=== PATIENT | female | born 1940 | race Caucasian/White ===

== ENCOUNTER 2023-12-03 20:17 | Observation (INO) | payer OTHER ==
[2023-12-03 21:09] LABS: BASO % 0.7 % (0-2.0); EOS % 1.9 % (0-4.5); HEMATOCRIT 36.2 % (32.4-45.2); HEMOGLOBIN 11.9 GM/dL (10.7-15.3); LYMPH % 14.4 % (8-40); MCH 29.4 pg (25.7-33.7); MEAN CELL VOLUME 89.1 fl (80-96); MEAN PLT VOLUME 8.3 fl (7.5-11.1); MONO % 7.7 % (3.8-10.2); NEUT % 75.3 % (42.8-82.8); PLATELET COUNT 171 10^3/uL (134-434); RBC 4.06 M/mm3 (3.60-5.2); RDW 14.2 % (11.6-15.6); WHITE BLOOD COUNT 7.3 K/mm3 (4.0-10.0)
[2023-12-03 21:21] LABS: ACTIVATED PTT 29.7 SECONDS (25.2-36.5); INR 0.98 (0.83-1.09); PROTHROMBIN TIME (PATIENT) 11.3 SEC (9.7-13.0)
[2023-12-03] MEDS: LACTATED RINGERS SOLUTION 1000 ML INFUS.BAG IV ONE (21:41)
[2023-12-03 21:45] LABS: POTASSIUM 3.6 mmol/L (3.5-5.1)
[2023-12-03 21:47] LABS: CALCIUM 8.9 mg/dL (8.5-10.1)
[2023-12-03 21:48] LABS: ALBUMIN 3.6 g/dl (3.4-5.0); BLOOD UREA NITROGEN 16.3 mg/dL (7-18)
[2023-12-03 21:52] LABS: BILIRUBIN,TOTAL 0.1 mg/dL (0.2-1); TOT PROT 6.6 g/dl (6.4-8.2)
[2023-12-03 21:56] LABS: N-TERMINAL BNP 68.4 pg/ml (5-450)
[2023-12-04] MEDS ORDERED: DOCUSATE SODIUM 100 MG CAPSULE (FP) PO PRN (01:08)
[2023-12-04] MEDS ORDERED: ACETAMINOPHEN 325 MG TABLET (FP) PO PRN (01:08)
[2023-12-04] MEDS ORDERED: QUEtiapine FUMARATE 100 MG TABLET (FP) ONE ×2 (02:10→19:57)
[2023-12-04] MEDS ORDERED: QUEtiapine FUMARATE 25 MG TABLET ONE ×2 (02:11→19:56)
[2023-12-04] MEDS: GABAPENTIN 100 MG CAPSULE PO SCH (02:16)
[2023-12-04 02:52] LABS: EPI CELLS 12 /uL (0-25.1); HYALINE CASTS 0 /uL (0-3.1); PH,URINE 6.5 (5.0-8.0); URINE APPEARANCE CLEAR; URINE BACTERIA 21 /uL (0-1359); URINE BILIRUBIN NEGATIVE (NEGATIVE); URINE COLOR YELLOW; URINE GLUCOSE (UA) NEGATIVE (NEGATIVE); URINE KETONE NEGATIVE (NEGATIVE); URINE LEUK ESTERASE 1+ (NEGATIVE); URINE NITRITE NEGATIVE (NEGATIVE); URINE PROTEIN TRACE (NEGATIVE); URINE RBC 4 /uL (0-23.9); URINE UROBILINOGEN 0.2 mg/dL (0.2-1.0); URINE WBC 62 /uL (0-25.8)
[2023-12-04 06:18] LABS: BASO % 0.4 % (0-2.0); EOS % 2.1 % (0-4.5); HEMATOCRIT 35.5 % (32.4-45.2); HEMOGLOBIN 11.6 GM/dL (10.7-15.3); LYMPH % 24.9 % (8-40); MCHC 32.6 g/dl (32.0-36.0); MEAN PLT VOLUME 8.3 fl (7.5-11.1); NEUT % 63.6 % (42.8-82.8); PLATELET COUNT 169 10^3/uL (134-434); RBC 3.99 M/mm3 (3.60-5.2); RDW 13.7 % (11.6-15.6); WHITE BLOOD COUNT 5.9 K/mm3 (4.0-10.0)
[2023-12-04 06:32] LABS: POTASSIUM 3.8 mmol/L (3.5-5.1)
[2023-12-04 06:34] LABS: CALCIUM 9.3 mg/dL (8.5-10.1)
[2023-12-04 06:35] LABS: BLOOD UREA NITROGEN 15.4 mg/dL (7-18)
[2023-12-04 06:39] LABS: CREATININE 0.7 mg/dL (0.55-1.3)
[2023-12-04] MEDS ORDERED: ESCITALOPRAM OXALATE 10 MG TABLET ONE (07:23)
[2023-12-04] MEDS ORDERED: PANTOPRAZOLE 40 MG TABLET PO ONE (07:23)
[2023-12-04] MEDS: PANTOPRAZOLE 40 MG TABLET PO SCH (07:28)
[2023-12-04] MEDS: ESCITALOPRAM OXALATE 10 MG TABLET PO SCH (07:29)
[2023-12-04 13:29] LABS: N-TERMINAL BNP 60.8 pg/ml (5-450)
[2023-12-04] MEDS ORDERED: CEFTRIAXONE 1 GM/50 ML BAG ONE (18:50)
[2023-12-04] MEDS: CEFTRIAXONE 1 GM in DEXTROSE 5%-WATER - 50 ML IVPB SCH (19:13)
[2023-12-04] MEDS ORDERED: DONEPEZIL HCL 5 MG TABLET (FP) ONE (22:01)
[2023-12-04] MEDS ORDERED: GABAPENTIN 100 MG CAPSULE ONE (22:01)
[2023-12-04] MEDS: DONEPEZIL HCL 5 MG TABLET (FP) PO SCH (22:10)
[2023-12-05 00:28] VITALS: BMI 31.2
[2023-12-05 07:14] LABS: BASO % 0.5 % (0-2.0); EOS % 0.2 % (0-4.5); HEMATOCRIT 35.5 % (32.4-45.2); HEMOGLOBIN 11.5 GM/dL (10.7-15.3); LYMPH % 10.7 % (8-40); MCHC 32.4 g/dl (32.0-36.0); MEAN CELL VOLUME 89.6 fl (80-96); MEAN PLT VOLUME 8.5 fl (7.5-11.1); MONO % 7.1 % (3.8-10.2); NEUT % 81.5 % (42.8-82.8); PLATELET COUNT 180 10^3/uL (134-434); RBC 3.96 M/mm3 (3.60-5.2); RDW 13.6 % (11.6-15.6)
[2023-12-05 07:36] LABS: POTASSIUM 3.8 mmol/L (3.5-5.1)
[2023-12-05 07:40] LABS: CALCIUM 9.6 mg/dL (8.5-10.1)
[2023-12-05 07:41] LABS: ALBUMIN 4.2 g/dl (3.4-5.0); BLOOD UREA NITROGEN 15.6 mg/dL (7-18)
[2023-12-05 07:44] LABS: CREATININE 0.8 mg/dL (0.55-1.3)
[2023-12-05 07:46] LABS: BILIRUBIN,TOTAL 0.2 mg/dL (0.2-1); TOT PROT 7.5 g/dl (6.4-8.2)
[2023-12-05] MEDS: ACETAMINOPHEN 325 MG TABLET (FP) PO PRN (10:17)
[2023-12-05] MEDS: LOSARTAN POTASSIUM 50 MG TABLET PO SCH (13:25)
[2023-12-05 15:03] VITALS: BP 125/73; PULSE 82; RESP 19; TEMP 98.4
== END 2023-12-05 17:53 | disposition home health service (06) ==
LOC: JER 20:17 → JERBED 12-04 01:07 → J4W 12-05 00:14
PROVIDERS: ADMIT Internal Medicine; ATTEND Internal Medicine
PROC: 3E03329 Introduction of Other Anti-infective into Peripheral Vein, Percutaneous Approach (ICD-10-PCS; principal; 2023-12-04)
PROC: 3E0337Z Introduction of Electrolytic and Water Balance Substance into Peripheral Vein, Percutaneous Approach (ICD-10-PCS; 2023-12-04)
DX: R55 Syncope and collapse (principal); I10 Essential (primary) hypertension; E78.5 Hyperlipidemia, unspecified; F03.90 Unspecified dementia, unspecified severity, without behavioral disturbance, psychotic disturbance, mood disturbance, and anxiety; I95.9 Hypotension, unspecified
CPT/HCPCS: 0241U-QW; 36415; 70450-TC; 71045-TC-FY; 80048; 80053; 80061; 81003; 83036; 83735; 83880; 84443; 84484; 85025; 85610; 85730; 87086; 93005; 93010; 93306-TC; 96374; 97116-GP; 97162-GP; 99285-25; G0378